=== PATIENT | female | born 1995 | race African-American/Black ===

== ENCOUNTER 2016-11-09 12:06 | Emergency (ER) | payer OTHER | END 2016-11-09 18:14 | disposition home or self-care (01) | LOC: D.ER 12:06 | DX: B34.9 Viral infection, unspecified (principal); F17.200 Nicotine dependence, unspecified, uncomplicated ==

== ENCOUNTER → 2017-02-20 | Emergency (ER) | payer OTHER | END | disposition home or self-care (01) | LOC: D.ER 15:14 | DX: S63.501A Unspecified sprain of right wrist, initial encounter (principal); W22.8XXA Striking against or struck by other objects, initial encounter; Y93.89 Activity, other specified; Y92.89 Other specified places as the place of occurrence of the external cause ==

== ENCOUNTER 2017-02-22 15:28 | Emergency (ER) | payer OTHER | END 2017-02-22 19:57 | disposition home or self-care (01) | LOC: D.ER 15:28 | DX: Z02.9 Encounter for administrative examinations, unspecified (principal) ==

== ENCOUNTER 2017-12-17 14:31 | Emergency (ER) | payer OTHER | END 2017-12-17 16:46 | disposition home or self-care (01) | LOC: D.ER 14:31 | DX: J11.1 Influenza due to unidentified influenza virus with other respiratory manifestations (principal) ==

== ENCOUNTER 2018-08-13 23:49 | Emergency (ER) | payer OTHER ==
[~2018-08-13] VITALS: Ht 157.5 cm; Wt 48.2 kg
[2018-08-14 00:03] VITALS: Ht 157.5 cm; Wt 48.2 kg
[2018-08-14] MEDS ORDERED: MACROBID100 MG PO (00:05)
[2018-08-14] MEDS ORDERED: FLAGYL500 MG PO (00:05)
[2018-08-14 00:30] LABS: BASOPHILS 0.1 % (0-2); EOSINOPHILS 5.4 % (0-7); HEMATOCRIT 33.5 % (36.0-48.0); HEMOGLOBIN 11.6 g/dL (12-16); IMMATURE GRANULOCYTES 0.2 % (0-5); LYMPHOCYTES 26.2 % (15-50); MCHC 34.6 g/dL (31.0-37.0); MCV 92.5 fL (80.0-100.0); MEAN PLATELET VOLUME 11.1 fL (7.4-10.4); MONOCYTES 6.4 % (2-11); NEUTROPHILS 61.7 % (40-80); PLATELET COUNT 216 10x3/uL (130-400); RBC 3.62 10x6/uL (4.00-5.40); RDW 12.3 % (11.5-14.5); WBC 10.6 10x3/uL (4.8-10.8)
[2018-08-14 00:38] LABS: APPEARANCE CLEAR (CLEAR); BILIRUBIN NEGATIVE (NEGATIVE); COLOR YELLOW (YELLOW); GLUCOSE NEGATIVE (NEGATIVE); KETONE NEGATIVE (NEGATIVE); NITRITE NEGATIVE (NEGATIVE); PROTEIN NEGATIVE (NEGATIVE); UROBILINOGEN NORMAL (NORMAL)
[2018-08-14 00:48] LABS: ALBUMIN 3.3 g/dL (3.4-5.0); ALKALINE PHOSPHATASE 38 U/L (46-116); ALT (SGPT) 13 U/L (10-68); BILIRUBIN - TOTAL 0.45 mg/dL (0.2-1.3); CALC OSMOLALITY 264 mosm/kg (275-300); CALCIUM 8.8 mg/dL (8.5-10.1); CARBON DIOXIDE 25.2 mmol/L (21.0-32.0); CHLORIDE - SERUM 100 mmol/L (98-107); CREATININE - SERUM 0.6 mg/dL (0.6-1.3); GLUCOSE 76 mg/dL (74-106); LIPASE 102 U/L (73-393); POTASSIUM - SERUM 3.1 mmol/L (3.5-5.1); PROTEIN - SERUM 7.3 g/dL (6.4-8.2); SODIUM 134 mmol/L (136-145); UREA NITROGEN 7 mg/dL (7-18); eGFR NON AFRICAN AMERICAN > 90 mL/min (90-120)
[2018-08-14 01:46] VITALS: BP 95/48
== END 2018-08-14 01:47 | disposition home or self-care (01) ==
LOC: D.ER 23:49
PROVIDERS: Family Medicine
DX: O26.892 Other specified pregnancy related conditions, second trimester (principal); Z3A.15 15 weeks gestation of pregnancy; R10.9 Unspecified abdominal pain

== ENCOUNTER → 2018-10-01 21:06 | Outpatient (CLI) | payer OTHER ==
[2018-08-14 00:03] VITALS: BMI 19.4
[~2018-10-01 21:06] MED LIST: FLAGYL500 MG PO; MACROBID100 MG PO
[2018-10-01 21:49] LABS: APPEARANCE HAZY (CLEAR); BILIRUBIN NEGATIVE (NEGATIVE); COLOR YELLOW (YELLOW); GLUCOSE 50 mg/dL (NEGATIVE); KETONE NEGATIVE (NEGATIVE); NITRITE NEGATIVE (NEGATIVE); PROTEIN NEGATIVE (NEGATIVE); SPECIFIC GRAVITY 1.015 (1.005-1.020); UROBILINOGEN NORMAL (NORMAL)
[2018-10-01 21:52] LABS: BACTERIA FEW /hpf (NONE SEEN); EPITHELIAL CELLS 0-5 /hpf (0-5); RED CELLS - URINE 0-5 /hpf (0-5); WHITE CELLS - URINE 0-5 /hpf (0-5)
[2018-10-01 21:53] LABS: AMORPHOUS SEDIMENT >1+ /lpf (NONE SEEN)
[2018-10-01 23:25] LABS: BASOPHILS 0.1 % (0-2); EOSINOPHILS 2.5 % (0-7); HEMATOCRIT 31.5 % (36.0-48.0); HEMOGLOBIN 10.9 g/dL (12-16); IMMATURE GRANULOCYTES 0.4 % (0-5); LYMPHOCYTES 25.3 % (15-50); MCH 32.3 pg (26.0-34.0); MCHC 34.6 g/dL (31.0-37.0); MCV 93.5 fL (80.0-100.0); MEAN PLATELET VOLUME 10.8 fL (7.4-10.4); MONOCYTES 7.7 % (2-11); PLATELET COUNT 221 10x3/uL (130-400); RBC 3.37 10x6/uL (4.00-5.40); RDW 12.6 % (11.5-14.5); WBC 10.9 10x3/uL (4.8-10.8)
== END | disposition home or self-care (01) ==
LOC: D.LDO 21:06
PROVIDERS: Obstetrics & Gynecology
DX: O26.892 Other specified pregnancy related conditions, second trimester (principal); Z3A.22 22 weeks gestation of pregnancy

== ENCOUNTER → 2018-10-03 13:01 | Outpatient (CLI) | payer OTHER ==
[2018-08-14 00:03] VITALS: BMI 19.4
== END | disposition home or self-care (01) ==
LOC: D.US 13:01
DX: N20.0 Calculus of kidney (principal)

== ENCOUNTER 2018-10-12 01:33 | Outpatient (CLI) | payer OTHER ==
[2018-08-14 00:03] VITALS: BMI 19.4
== END 2018-10-12 02:28 | disposition home or self-care (01) ==
LOC: D.LDO 01:33
DX: O26.893 Other specified pregnancy related conditions, third trimester (principal); Z3A.23 23 weeks gestation of pregnancy

== ENCOUNTER 2018-11-02 21:17 | Outpatient (CLI) | payer OTHER ==
[2018-08-14 00:03] VITALS: BMI 19.4
[2018-11-02 22:26] LABS: APPEARANCE HAZY (CLEAR); COLOR YELLOW (YELLOW); NITRITE NEGATIVE (NEGATIVE); SPECIFIC GRAVITY 1.015 (1.005-1.020)
[2018-11-02 22:27] LABS: AMORPHOUS SEDIMENT <1+ /lpf (NONE SEEN); BILIRUBIN NEGATIVE (NEGATIVE); EPITHELIAL CELLS 0-5 /hpf (0-5); GLUCOSE NEGATIVE (NEGATIVE); KETONE NEGATIVE (NEGATIVE); PROTEIN NEGATIVE (NEGATIVE); RED CELLS - URINE NONE SEEN /hpf (0-5); UROBILINOGEN NORMAL (NORMAL); WHITE CELLS - URINE NSEEN /hpf (0-5)
[2018-11-02 22:42] LABS: UDS - AMPHET NEGATIVE QUAL (NEGATIVE); UDS - BARB NEGATIVE QUAL (NEGATIVE); UDS - BENZO NEGATIVE QUAL (NEGATIVE); UDS - COCAINE NEGATIVE QUAL (NEGATIVE); UDS - OPIATE NEGATIVE QUAL (NEGATIVE); UDS - PCP NEGATIVE QUAL (NEGATIVE); UDS - THC NEGATIVE QUAL (NEGATIVE)
[2018-11-03 01:54] LABS: BASOPHILS 0.1 % (0-2); EOSINOPHILS 1.4 % (0-7); HEMATOCRIT 34.2 % (36.0-48.0); HEMOGLOBIN 11.8 g/dL (12-16); IMMATURE GRANULOCYTES 0.4 % (0-5); LYMPHOCYTES 20.7 % (15-50); MCH 32.3 pg (26.0-34.0); MCHC 34.5 g/dL (31.0-37.0); MCV 93.7 fL (80.0-100.0); MEAN PLATELET VOLUME 11.1 fL (7.4-10.4); MONOCYTES 6.6 % (2-11); NEUTROPHILS 70.8 % (40-80); PLATELET COUNT 255 10x3/uL (130-400); RBC 3.65 10x6/uL (4.00-5.40); RDW 12.3 % (11.5-14.5)
== END 2018-11-03 05:37 | disposition home or self-care (01) ==
LOC: D.LDO 21:17 → D.LD 23:00 → D.LDO 11-03 05:37
PROVIDERS: Obstetrics & Gynecology
DX: O26.892 Other specified pregnancy related conditions, second trimester (principal); Z3A.26 26 weeks gestation of pregnancy